=== PATIENT | female | born 1940 ===

== ENCOUNTER 2016-06-19 10:13 | Emergency (ER) | payer MEDICARE ==
[2016-06-19 10:14] VITALS: BMI 35.0
--- NOTE | 2016-06-19 10:36 | ED PDOC ---
Arrival/HPI - General Chief Complaint: Lower Extremity Problem/Injury Time Seen by Provider: 06/19/16 10:18 Historian: Patient - History of Present Illness Narrative History of Present Illness (Text): 06/19/16 10:28 Lauren Lopez is a 76 year old female complaining of back pain radiating down left leg for about one month and worsening knee pain for a week. Patient says that her leg is starting to swell. Patient denies fevers, nausea, vomiting, chest pain, or any other complaint at this time. PMD: Dr. Morales Time/Duration: 1 week (Knee pain ), < month (Leg pain) Symptom Onset: Gradual Symptom Course: Worsening Severity Level: Mild Activities at Onset: Light Context: Home Associated Symptoms (Text): 06/19/16 11:26 Several month history of mild lower back pain with no injury or trauma. Over the last week the pain has become worse. There is radiation into her left buttocks and left lower extremity. No numbness tingling or paresthesias. No weakness. She complains of swelling in the left lower extremity, though I do not appreciate any swelling. The pain is made worse by certain movements. Past Medical History - Provider Review Nursing Documentation Reviewed: Yes - Infectious Disease Hx of Infectious Diseases: None - Cardiac Hx Hypertension: Yes - Neurological Hx Paralysis: No - Hematological/Oncological Hx Blood Transfusions: No Hx Blood Transfusion Reaction: No - Musculoskeletal/Rheumatological Hx Osteoporosis: Yes - Psychiatric Hx Substance Use: No - Surgical History Hx Hysterectomy: Yes - Anesthesia Hx Anesthesia Reactions: No Hx Malignant Hyperthermia: No Family/Social History - Physician Review Nursing Documentation Reviewed: Yes Family/Social History: No Known Family HX Smoking Status: Never Smoked Hx Alcohol Use: No Hx Substance Use: No Allergies/Home Meds Allergies/Adverse Reactions: Allergies No Known Allergies Allergy (Verified 06/19/16 10:27) Home Medications: Home Meds Medication Instructions Recorded Confirmed Calcium Carbonate/Vitamin D3 1 tab PO DAILY 06/19/16 06/19/16 [Calcium 500 + Vit D Caplet] Denosumab [Prolia] 1 mg SC DAILY 06/19/16 06/19/16 Losartan/Hydrochlorothiazide 1 tab PO DAILY 06/19/16 06/19/16 [Hyzaar 100-25 Tablet] Omeprazole 20 mg PO DAILY 04/08/17 04/08/17 Vitamin D3 1 tab PO DAILY 06/19/16 06/19/16 Review of Systems - Physician Review All systems were reviewed & negative as marked: Yes - Review of Systems Constitutional: absent: Fevers, Night Sweats Eyes: absent: Vision Changes ENT: absent: Hearing Changes Respiratory: absent: SOB, Cough Cardiovascular: absent: Chest Pain Gastrointestinal: absent: Abdominal Pain Genitourinary Female: absent: Urine Output Changes Musculoskeletal: Back Pain (radiating down left leg), Other (Knee pain) Skin: absent: Rash Neurological: absent: Headache, Dizziness Endocrine: absent: Polyuria Hemo/Lymphatic: absent: Easy Bleeding Psychiatric: absent: Depression Physical Exam Vital Signs Reviewed: Yes Vital Signs Temp Pulse Resp BP Pulse Ox 06/19/16 10:21 97.6 F 78 18 164/88 H 99 Temperature: Afebrile Blood Pressure: Hypertensive Pulse: Regular Respiratory Rate: Normal Appearance: Positive for: Well-Appearing, Non-Toxic, Uncomfortable Pain Distress: Mild Mental Status: Positive for: Alert and Oriented X 3 - Systems Exam Head: Present: Atraumatic, Normocephalic Pupils: Present: PERRL Extroacular Muscles: Present: EOMI Conjunctiva: Present: Normal Mouth: Present: Moist Mucous Membranes Pharnyx: No: ERYTHEMA, EXUDATE, TONSILS ENLARGED Neck: Present: Normal Range of Motion. No: MIDLINE TENDERNESS, Paraspinal Tenderness Respiratory/Chest: Present: Clear to Auscultation, Good Air Exchange. No: Respiratory Distress, Accessory Muscle Use Cardiovascular: Present: Regular Rate and Rhythm, Normal S1, S2. No: Murmurs Abdomen: Present: Normal Bowel Sounds. No: Tenderness, Distention, Peritoneal Signs Back: Present: Paraspinal Tenderness, Other (Tenderness to left lumbar sacral plane and left sciatic notch; no spinal tenderness). No: CVA Tenderness, Midline Tenderness, Pain with Leg Raise Upper Extremity: Present: Normal Inspection. No: Cyanosis, Edema Lower Extremity: Present: Normal Inspection, NORMAL PULSES, Normal ROM, Neurovascularly Intact, Other (Negative straight leg raising). No: Edema, CALF TENDERNESS, Tenderness, Swelling Neurological: Present: GCS=15, CN II-XII Intact, Speech Normal, Motor Func Grossly Intact, Normal Cerebellar Funct, Gait Normal Skin: Present: Warm, Dry, Normal Color. No: Rashes Psychiatric: Present: Alert, Oriented x 3, Normal Insight, Normal Concentration Medical Decision Making ED Course and Treatment: 06/19/16 10:28 Impression: 76 year old female complaining of back pain radiating down left leg for about one month and worsening knee pain for a week. Differential Diagnosis included but are not limited to: Sciatica Plan: -- Duplex Left LE US -- Flexeril, Toradol -- Reassess and disposition Progress Notes: 06/19/16 11:29 Family is concern that the patient has a DVT. I discussed in detail with them that I did not feel this was a DVT, but was clearly sciatica. Nonetheless, they are requesting a venous Doppler which has been ordered 06/19/16 12:18 Symptoms improved. - RAD Interpretation Radiology Orders: 06/19/16 10:39 DUPLEX LOWER EXTRM VEIN LEFT [US] Stat Left lower extremity venous Doppler as read by the radiologist is negative for DVT Parachute [employer]er: Radiologist - Medication Orders Current Medication Orders: Cyclobenzaprine HCl (Flexeril) 10 mg PO ONCE KIM Last Admin: 06/19/16 11:04 Dose: 10 MG Discontinued Medications Ketorolac Tromethamine (Toradol) 30 mg IM ONCE ONE Stop: 06/19/16 10:41 Last Admin: 06/19/16 11:01 Dose: 30 MG IM Administration Charges Document 06/19/16 11:01 GMI (Rec: 06/19/16 11:04 GMI [id number]) Injection Site MAR Injection Site Left Gluteus Garry Charges for Administration # of IM Administrations 1 Disposition/Present on Arrival - Present on Arrival Any Indicators Present on Arrival: No History of DVT/PE: No History of Uncontrolled Diabetes: No Urinary Catheter: No History of Decub. Ulcer: No History Surgical Site Infection Following: None - Disposition Have Diagnosis and Disposition been Completed?: Yes Diagnosis: Sciatica of left side Disposition: HOME/ ROUTINE Disposition Time: 12:13 Patient Plan: Discharge Patient Problems: Current Active Problems Problem Status Diagnosed Sciatica of left side Acute Condition: IMPROVED Discharge Instructions (ExitCare): Sciatica (ED) Additional Instructions: Rest and moist heat. Follow-up with PMD. Follow up in ER as needed. Prescriptions: Prednisone [Deltasone] 20 mg PO DAILY #5 tablet Cyclobenzaprine [Flexeril] 5 mg PO Q8 #15 tab Tramadol HCl [Ultram] 50 mg PO Q6 PRN #14 tab PRN Reason: Pain Referrals: Fazal Morales MD [Primary Care Provider] - Follow up with primary
[2016-06-19 13:06] VITALS: BP 124/75; PULSE 75; RESP 19; TEMP 98; O2SAT 99
--- NOTE | 2016-06-20 14:22 | US ---
PROCEDURE: Left lower extremity venous US HISTORY: Leg pain and swelling. Evaluate for DVT. PHYSICIAN(S): Jim Anderson MD. TECHNIQUE: Duplex sonography and color-flow Doppler with graded compression were used to evaluate the deep venous system of the left lower extremity. FINDINGS: The visualized deep venous system of the left lower extremity is sonographically normal and compressible. Normal wave forms and augmentation are seen. There is no sonographic evidence for deep venous thrombosis in the visualized segments of the left lower extremity. IMPRESSION: 1. No sonographic evidence for deep venous thrombosis in the visualized segments of the left lower extremity.
== END 2016-06-19 13:00 | disposition home or self-care (01) ==
LOC: ED 10:13
DX: M54.32 Sciatica, left side (principal); I10 Essential (primary) hypertension
CPT/HCPCS: 93971; 96372; 99284; J1885

== ENCOUNTER 2018-07-25 10:54 | Outpatient (CLI) | payer MEDICARE | END 2018-07-25 10:55 | disposition home or self-care (01) | LOC: RAD 10:54 ==